=== PATIENT | male | born 1965 | race Caucasian/White ===

== ENCOUNTER 2016-09-02 11:22 | Inpatient (IN) ==
[2016-09-02] MEDS ORDERED: DEXTROSE 50% 25 GM/50 ML VIAL IV PRN (14:17)
[2016-09-02] MEDS ORDERED: GLUCAGON 1 MG VIAL IM PRN (14:17)
[2016-09-02 15:02] LABS: Basophils % 0.3 % (0.0-0.8); Eosinophils # 0.2 10*3/uL (0.0-0.87); Eosinophils % 2.1 % (0.00-10.9); Hemoglobin 15.2 GM/DL (14.0-18.0); Lymphocytes # 2.3 10*3/uL (1.4-4.0); Lymphocytes % 23.9 % (21.2-54.2); Mean Corpuscular HGB Conc 33.8 GM/DL (32-36); Mean Corpuscular Hemoglobin 30 PG (27-34); Mean Corpuscular Volume 87.9 FL (87-102); Mean Platelet Volume 10.6 FL (9.6-12.0); Monocytes % 10.3 % (1.7-12.7); Neutrophils # 6.1 10*3/uL (1.4-7.4); Neutrophils % 62.4 % (38.7-73.9); Platelet Count 342 T/CUMM (130-400); Red Blood Count 5.12 MC/CUMM (3.8-5.5); Red Cell Distribution Width 12.8 % (9.3-17.3); White Blood Count 9.8 T/CUMM (4-12)
[2016-09-02 15:18] LABS: Calcium 9.3 MG/DL (8.5-10.1)
[2016-09-02 15:19] LABS: Osmolality,Calculated 274.1 MOS/KG (273-304); Potassium 4.2 MMOL/L (3.5-5.1)
[2016-09-03] MEDS ORDERED: VANCOMYCIN INJ 1,000 MG in SODIUM CHLORIDE 0.9% 250 ML IV ONE (06:00)
[2016-09-03] MEDS ORDERED: ROPIVACAINE 0.5% 30 ML VIAL ONE (10:47)
[2016-09-03] MEDS ORDERED: DEXTROSE 50% 25 GM/50 ML VIAL IV PRN (12:00)
[2016-09-03] MEDS ORDERED: GLUCAGON 1 MG VIAL IM PRN (12:00)
--- NOTE | 2016-09-03 12:04 | Operative Note ---
Date of procedure: 09/03/16 Pre-op diagnosis: Cellulitis left foot Post-op diagnosis: other (Osteomyelitis left second metatarsal.) Procedure: Excisional debridement of granulation tissue fascia and bone left foot second metatarsal 1 x 1 x 1 cm Findings and technique: After informed consent was obtained the patient was brought to the operating room and placed in supine position after an ankle block was administered by anesthesia the patient's left foot was prepped and draped in usual sterile fashion is nearly closed wound was explored and had granulation tissue with serous drainage. He had cellulitis extending proximal to this and also proximal to his third toe. I explored the granulation tissue and there was no contained abscess or obvious purulence. He had had cultures which had grown staph aureus which appeared to be community-acquired and sensitive to most all antibiotics. I debrided away some the granulation tissue down to the transected end of his second metatarsal where the bone was noted to be soft and spongy and this bone was debrided back with a rondure about a centimeter. This was debrided back to healthy bone and the wound was copiously irrigated and good hemostasis obtained. There was no gross purulence. The wound was closed proximally with interrupted 3-0 nylon suture and packed open distally with iodoform gauze. A bulky dressing was applied. Anesthesia: regional Surgeon / Physician: Ranjith Zamudio III. Estimated blood loss: minimal Specimens: none sent Condition: stable Disposition: PACU Results - Labs CBC & BMP: 09/02/16 14:31 09/02/16 14:31 Discharge Plan - Discharge Medications No Action metFORMIN [Glucophage] 500 mg PO BID W/MEALS Fenofibric Acid (Choline) [Fenofibric Acid] 135 mg PO DAILY Dapagliflozin Propanediol [Farxiga] 10 mg PO DAILY Liraglutide [Victoza 3-Nikhil] 1.6 mg SQ DAILY Insulin Degludec [Tresiba Flextouch U-200] 46 unit SQ DAILY Lisinopril 20 mg PO BEDTIME - Follow Up or Referral - Forms/Instructions
--- NOTE | 2016-09-03 12:21 | Anesthesia Post-Op ---
Anesthesia Post OP - Post Ansesthetic Evaluation Patient seen in post op: Yes Resp: within normal limits CV: within normal limits Mental: within normal limits Temp: within normal limits [id number]: within normal limits Nausea and Vomiting: within normal limits Pain: within normal limits
[2016-09-03] MEDS ORDERED: fentaNYL 100 MCG/2 ML VIAL ONE (12:23)
[2016-09-03] MEDS ORDERED: SODIUM CHLORIDE 0.9% 100 ML IV ONE (12:23)
[2016-09-03] MEDS ORDERED: MIDAZOLAM 2 MG/2 ML VIAL ONE (12:23)
[2016-09-03] MEDS ORDERED: MORPHINE 2 MG/1 ML SYRINGE IV PRN (15:35)
[2016-09-03] MEDS: INSULIN REGULAR 100 UNIT/ML SUBCUT SCH ×2 (16:18→21:17)
[2016-09-03] MEDS: VANCOMYCIN INJ 2,000 MG in SODIUM CHLORIDE 0.9% 500 ML IV SCH (21:12)
[2016-09-03] MEDS: LISINOPRIL 20 MG TABLET PO SCH (21:18)
[2016-09-04] MEDS: VANCOMYCIN INJ 2,000 MG in SODIUM CHLORIDE 0.9% 500 ML IV SCH ×3 (03:55→22:36)
[2016-09-04 06:28] LABS: Basophils # 0.1 10*3/uL (0.0-0.2); Basophils % 0.7 % (0.0-0.8); Eosinophils # 0.3 10*3/uL (0.0-0.87); Eosinophils % 2.8 % (0.00-10.9); Hematocrit 45.2 VOL% (42.0-52.0); Hemoglobin 14.7 GM/DL (14.0-18.0); Immature Granulocytes % 0.8 %; Immature Granulocytes Absolute 0.07 #; Lymphocytes # 2.4 10*3/uL (1.4-4.0); Lymphocytes % 26.8 % (21.2-54.2); Mean Corpuscular HGB Conc 32.5 GM/DL (32-36); Mean Corpuscular Hemoglobin 30 PG (27-34); Mean Corpuscular Volume 90.8 FL (87-102); Mean Platelet Volume 10.8 FL (9.6-12.0); Monocytes # 0.9 10*3/uL (0.11-0.8); Monocytes % 10.4 % (1.7-12.7); Neutrophils # 5.3 10*3/uL (1.4-7.4); Neutrophils % 58.5 % (38.7-73.9); Platelet Count 324 T/CUMM (130-400); Red Blood Count 4.98 MC/CUMM (3.8-5.5); White Blood Count 9.1 T/CUMM (4-12)
[2016-09-04 06:47] LABS: Calcium 8.5 MG/DL (8.5-10.1); Osmolality,Calculated 281.4 MOS/KG (273-304); Potassium 4.2 MMOL/L (3.5-5.1)
--- NOTE | 2016-09-04 08:31 | Event Note ---
He feels well. He has no pain in his foot. He still has the faint hint of erythema along his medial lower leg adjacent to his old postoperative scar where he has had previous lower leg surgery in the past. This is an area where he developed cellulitis before. He had debridement of the end of the his second metatarsal and exploration of his distal foot where he has cellulitis yesterday. He is growing staph aureus which is sensitive to multiple organisms. I did take the bone back about half a centimeter or so with a rondure back to healthy bone. It was questionable as to whether there was osteomyelitis. There was no abscess in his forefoot. We are continuing vancomycin to resolve the cellulitis of his forefoot and his wound is packed open. We will change the packing today. Would like to continue IV antibiotics for now until we see improvement in the cellulitis and at that point can discharge him to outpatient care.
[2016-09-04] MEDS ORDERED: LIRAGLUTIDE 1.6 MG SQ SCH (09:00)
[2016-09-04] MEDS ORDERED: NON-FORMULARY MEDICATION (Dapagliflozin Propanediol [Farxiga] 10 MG) PO SCH (09:00)
[2016-09-04] MEDS: INSULIN REGULAR 100 UNIT/ML SUBCUT SCH ×4 (09:47→22:37)
[2016-09-04] MEDS: PANTOPRAZOLE 40 MG TABLET PO SCH (09:51)
[2016-09-04] MEDS: ENOXAPARIN 40 MG/0.4 ML SYRINGE SUBCUT SCH (17:33)
[2016-09-04] MEDS: LISINOPRIL 20 MG TABLET PO SCH (22:37)
[2016-09-05] MEDS: VANCOMYCIN INJ 2,000 MG in SODIUM CHLORIDE 0.9% 500 ML IV SCH ×3 (03:35→21:04)
[2016-09-05] MEDS: INSULIN REGULAR 100 UNIT/ML SUBCUT SCH ×4 (08:00→21:02)
[2016-09-05] MEDS ORDERED: BISACODYL 5 MG TABLET PO ONE (08:58)
[2016-09-05] MEDS: PANTOPRAZOLE 40 MG TABLET PO SCH ×2 (09:13→09:14)
--- NOTE | 2016-09-05 10:27 | Event Note ---
He feels better. He has less redness over his forefoot. His wound has some purulent drainage. This looks better overall however and his white blood cell count is normal and he is afebrile. I think she will probably be ready for discharge by tomorrow.
[2016-09-05] MEDS: ENOXAPARIN 40 MG/0.4 ML SYRINGE SUBCUT SCH (16:33)
[2016-09-05] MEDS: LISINOPRIL 20 MG TABLET PO SCH (21:02)
[2016-09-06] MEDS: VANCOMYCIN INJ 2,000 MG in SODIUM CHLORIDE 0.9% 500 ML IV SCH (05:03)
[2016-09-06 07:11] VITALS: BP 140/86
[2016-09-06] MEDS: INSULIN REGULAR 100 UNIT/ML SUBCUT SCH (08:01)
--- NOTE | 2016-09-06 08:13 | Event Note ---
He feels well. Cellulitis is nearly completely resolved and he is afebrile. His wound looked much better yesterday. We will discharge him home. His cultures from last week grew staph aureus sensitive to nearly all antibiotics. This is probably a community-acquired organism. We will follow him up again in 1 week and we are setting him up with home health. We could discharge him on p.o. Augmentin.
--- NOTE | 2016-09-06 09:03 | Discharge Summary ---
Hospital Course - Hospital Course Hospital Course: Patient is a 50-year-old male who underwent excisional debridement for cellulitis infection of left second toe amputation site including bone for osteomyelitis. He required joint antibiotics for a cellulitis to which he responded well. Patient underwent serial wound checks with progressive improvement. He is reported to have grown methicillin sensitive staph aureus on an outpatient basis. He will transition to oral antibiotics for discharge based on Dr. Lizz Hood instructions. He was tolerating activity, voiding, had bowel movement, and tolerating p.o. intake without difficulty upon discharge. He was discharged home with home health services in good condition. Diagnosis - Discharge Diagnosis (1) Abscess or cellulitis of foot Status: Acute (2) Osteomyelitis due to type 2 diabetes mellitus Status: Acute Specialty Discharge - Follow Up or Referrals Follow up with: Ranjith Zamudio III., MD [Physician] - 09/12/16 2:00 pm (1 week) Discharge Plan - Discharge Data Disposition: Home Health Service Condition at Discharge: Stable Discharge Diet: diabetic diet Activity: other (Limit activity. Elevate affected extremity. Pt may ambulate. ) Hygiene: may shower, keep area(s) dry Driving: other (No driving while taking narcotics.) Contact your physician if you experience:: fever over 101, Difficulty voiding, Redness or swelling, Nausea/Vomiting, Shortness of breath, Bleeding, pain uncontrolled by pain medications Wound / Dressing Care Instructions: Dressing changes daily: clean with saline and pack with 1/4 iodoform gauze. Apply soft dressing. - Discharge Medications New HYDROcodone/ACETAMIN 7.5-325 [Marana 7.5-325] 1 tablet PO Q4H PRN #30 tablet PRN Reason: Pain Moderate To Severe (4-10) Amoxicillin/Clav Tab [Augmentin Tab] 875 mg PO BID #20 tablet Continue metFORMIN [Glucophage] 500 mg PO BID W/MEALS Fenofibric Acid (Choline) [Fenofibric Acid] 135 mg PO DAILY Dapagliflozin Propanediol [Farxiga] 10 mg PO DAILY Liraglutide [Victoza 3-Nikhil] 1.6 mg SQ DAILY Insulin Degludec [Tresiba Flextouch U-200] 46 unit SQ DAILY Lisinopril 20 mg PO BEDTIME - Follow Up or Referral Follow Up: Ranjith Zamudio III., MD [Physician] - 09/12/16 2:00 pm (1 week) - Forms/Instructions Instructions: Osteomyelitis (DC), Osteomyelitis (GEN), Debridement (DC), Nicotine (Into the mouth) Exam - Constitutional Vitals: Period Temp Pulse Resp BP Sys/Marie Pulse Ox Last 24 Hr 97.0 F-98.2 F 50-60 16-19 121-140/67-86 96-98 General appearance: no acute distress, morbidly obese - Eye Eye exam: Absent: conjunctival injection, scleral icterus - Respiratory Respiratory exam: Present: clear to auscultation bilaterally - Cardiovascular Cardiovascular exam: Present: regular rate and rhythm - GI/Abdominal GI/Abdominal exam: Present: normal bowel sounds, soft. Absent: distended, tenderness - Extremities Exam Extremities exam: Present: other (dressing c/d/i). Absent: calf tenderness, edema - Neurological Exam Neurological exam: Present: alert, oriented X3 - Skin Skin exam: Present: normal color, warm Discharge Results Procedures and tests throughout hospitalization: Excisional debridement left second toe amputation site including fascia and bone. No culture or pathology pending. Labs on day of discharge: Labs from last 24 hours 09/06/16 09/05/16 09/05/16 07:10 20:25 15:26 POC Glucose 117 H 158 H 183 H 09/05/16 11:14 POC Glucose 160 H DS: Provider Date of admission: 09/02/16 13:06 Primary care physician: Micah Kaufman DO Attending physician on admission: Ranjith Zamudio III., Consults: 09/02/16 14:56 Consult to Pastoral Services [CONS] Routine Comment: Pastoral Screen: Request Loss Control Consultant Visit Pastoral Screen Source of Request: Patient 09/03/16 13:19 Consult to Pharmacy [CONS] Routine Reason for Pharmacy Consult: Dose/Manage Vancomycin 09/06/16 08:47 Consult to Case Mgmt/Social Srvs [CONS] Routine Reason for Case Mgmt/Social Srvs: Discharge Planning Consult Comment: home health for wound care; discharge today Discharging clinician: Laisha Herrera PA-C
[2016-09-06] MEDS: PANTOPRAZOLE 40 MG TABLET PO SCH (09:36)
== END 2016-09-06 11:12 | disposition home health service (06) | DRG 629 ==
LOC: N.3E 13:06
PROVIDERS: ADMIT Surgery; ATTEND Surgery